=== PATIENT | female | born 1980 | race African-American/Black ===

== ENCOUNTER 2017-01-25 07:46 | Emergency (ER) | payer MEDICAID ==
[2017-01-25 07:59] VITALS: BP 109/64
--- NOTE | 2017-01-25 08:35 | ER Document Report ---
HPI - HPI Patient complains to provider of: Bleeding with urination Onset: This morning Onset/Duration: Sudden Pain Level: 1 Context: 36-year-old female complaining of dysuria, frequency, and blood on tissue paper after she urinated several times this morning. She had to leave work because of the discomfort that she is feeling in the suprapubic area. No fever. No flank pain. S/P hysterectomy. Associated Symptoms: None Exacerbated by: Denies Relieved by: Denies Similar symptoms previously: No Recently seen / treated by doctor: No - ROS ROS below otherwise negative: Yes Systems Reviewed and Negative: Yes All other systems reviewed and negative - DERM Skin Color: Normal Past Medical History - General Information source: Patient - Social History Smoking Status: Unknown if Ever Smoked Frequency of alcohol use: None Drug Abuse: None Lives with: Family Family History: Reviewed & Not Pertinent - Medical History Medical History: Negative Renal/ Medical History: Denies: Hx Peritoneal Dialysis Past Surgical History: Reports: Hx Hysterectomy Vertical Provider Document - CONSTITUTIONAL Agree With Documented VS: Yes Exam Limitations: No Limitations - INFECTION CONTROL TRAVEL OUTSIDE OF THE [place] IN LAST 30 DAYS: No - HEENT HEENT: Normocephalic - NECK Neck: Supple - RESPIRATORY Respiratory: Breath Sounds Normal, No Respiratory Distress O2 Sat by Pulse Oximetry: 99 - CARDIOVASCULAR Cardiovascular: Regular Rate, Regular Rhythm - GI/ABDOMEN Gastrointestinal: Abdomen Soft, Abdomen Non-Tender - REPRODUCTIVE Female Genitalia: Normal Inspection Notes: pt used qtip, no blood in vagina - BACK Back: Normal Inspection. negative: CVA Tenderness-Right, CVA Tenderness-Left - MUSCULOSKELETAL/EXTREMETIES Musculoskeletal/Extremeties: MAEW, FROM - NEURO Level of Consciousness: Awake, Alert, Appropriate - DERM Integumentary: Warm, Dry, No Rash Course - Vital Signs Vital signs: Temp Pulse Resp BP Pulse Ox 98.4 F 71 18 109/64 99 01/25/17 07:58 01/25/17 07:58 01/25/17 07:58 01/25/17 07:58 01/25/17 07:58 Discharge - Discharge Clinical Impression: Hemorrhagic cystitis Condition: Good Disposition: HOME, SELF-CARE Instructions: Nitrofurantoin ([facility]), Urinary Anesthetic Agent ([facility]), Urinary Tract Infection ([facility]) Additional Instructions: plenty of fluids today Return to the emergency room for increased pain fever vomiting Urine culture is pending Please complete the patient satisfaction survey if you get one, and return it.. If you do not receive a survey, then you can go to the [facility] website, [email or web address] and place your comments about your very good care. Thank you very much. It was a pleasure being your medical provider today. Prescriptions: Nitrofurantoin/Nitrofuran Mac [Macrobid 100 mg Capsule] 100 mg PO BID #14 capsule Phenazopyridine HCl [Pyridium 100 Mg Tablet] 100 mg PO TIDP PRN #10 tablet PRN Reason: Forms: Return to Work
[2017-01-25 09:11] LABS: APPEARANCE,URINE CLOUDY; BILIRUBIN,URINE NEGATIVE (NEGATIVE); GLUCOSE, URINE NEGATIVE (NEGATIVE); KETONES,URINE NEGATIVE (NEGATIVE); LEUKOCYTE ESTERASE,URINE MODERATE (NEGATIVE); NITRITE,URINE NEGATIVE (NEGATIVE); PROTEIN,URINE 30 mg/dL (NEGATIVE); URINE SPECIFIC GRAVITY 1.029
[2017-01-25] MEDS ORDERED: ONDANSETRON 4 MG TAB.RAPDIS PO ONE (09:19)
[2017-01-25] MEDS ORDERED: NITROFURANTOIN MONOHYD/M-CRYST 100 MG CAPSULE PO ONE (09:19)
[2017-01-25] MEDS ORDERED: PHENAZOPYRIDINE HCL 100 MG TABLET PO ONE (09:19)
== END 2017-01-25 09:29 | disposition home or self-care (01) ==
LOC: ER 07:46
DX: N30.81 Other cystitis with hematuria (principal); R31.9 Hematuria, unspecified; R30.0 Dysuria; R35.0 Frequency of micturition
CPT/HCPCS: 81001; 87086; 99283

== ENCOUNTER → 2017-10-01 | Outpatient (CLI) | payer MEDICAID ==
--- NOTE | 2017-10-01 17:07 | RADIOLOGY REPORT (SQ) ---
EXAM DESCRIPTION: CHEST PA/LATERAL COMPLETED DATE/TIME: 10/01/2017 5:00 pm REASON FOR STUDY: NICOTINE DEPENDENCE COMPARISON: March 2010 EXAM PARAMETERS: NUMBER OF VIEWS: two views TECHNIQUE: Digital Frontal and Lateral radiographic views of the chest acquired. RADIATION DOSE: NA LIMITATIONS: none FINDINGS: LUNGS AND PLEURA: No opacities, masses or pneumothorax. No pleural effusion. MEDIASTINUM AND HILAR STRUCTURES: No masses or contour abnormalities. HEART AND VASCULAR STRUCTURES: Heart normal size. No evidence for failure. BONES: No acute findings. HARDWARE: None in the chest. OTHER: No other significant finding. IMPRESSION: NO SIGNIFICANT RADIOGRAPHIC FINDING IN THE CHEST. TECHNICAL DOCUMENTATION: JOB ID: [id number] [employer]- All Rights Reserved Reading location - IP/workstation name: [email or web address]
--- NOTE | 2017-10-01 23:07 | EKG REPORT ---
SEVERITY:- NORMAL ECG - SINUS RHYTHM : Confirmed by: Samantha Pablo 01-Oct-2017 23:07:06
== END ==
LOC: OD 16:05
PROVIDERS: ATTEND Nurse Practitioner Acute Care
DX: F17.210 Nicotine dependence, cigarettes, uncomplicated (principal); R07.89 Other chest pain
CPT/HCPCS: 71046; 93005; 93010